=== PATIENT | female | born 2000 | race Caucasian/White ===

== ENCOUNTER → 2020-07-17 12:30 | Observation (INO) | END | disposition home or self-care (01) | LOC: 1NENULAB | PROVIDERS: ADMIT Obstetrics & Gynecology; ATTEND Obstetrics & Gynecology ==

== ENCOUNTER → 2020-10-07 22:41 | Observation (INO) ==
[2020-10-07 19:18] LABS: Basophils % 0.3 %; Eosinophils % 0.3 %; Hematocrit 33.2 % (35.3-44.9); Hemoglobin 11.2 g/dL (11.5-15.4); Immature Granulocytes % 1.5 % (0-4); Lymphocytes % 21.9 %; Mean Corpuscular HGB Conc 33.7 g/dL (31.6-35.5); Mean Platelet Volume 9.6 fL (9.4-12.4); Monocytes # 1.1 K/mcL (0.0-1.3); Monocytes % 7.8 %; Neutrophils # 9.3 K/mcL (1.6-8.9); Platelet Count 311 K/mcL (140-400); Red Blood Count 3.73 M/mcL (3.82-4.97); Red Cell Distribution Width 12.7 % (11.5-14.5); Segmented Neutrophils % 68.2 %; White Blood Count 13.7 K/mcL (4.3-11.1)
[2020-10-07 19:25] LABS: INR 0.9; Prothrombin Time 10.4 Seconds (9.4-12.1)
[2020-10-07 19:27] LABS: Activated Partial Thrombo Time 24.8 Seconds (26.0-36.0)
== END | disposition home or self-care (01) ==
LOC: 1NENULAB
PROVIDERS: ADMIT Advanced Practice Midwife; ATTEND Advanced Practice Midwife

== ENCOUNTER 2020-11-08 | Inpatient (IN) ==
[2020-11-08] MEDS ORDERED: *HR* Nalbuphine 10 MG/ML AMPUL IV PRN (00:14)
[2020-11-08] MEDS ORDERED: Metoclopramide 10 MG/2 ML VIAL IVP PRN (00:14)
[2020-11-08] MEDS ORDERED: Lidocaine 1% 20 ML MDV INFILT PRN (00:14)
[2020-11-08] MEDS ORDERED: Famotidine 20 MG/2 ML VIAL IVP PRN (00:14)
[2020-11-08] MEDS ORDERED: miSOPROStoL 25 MCG TABLET PO PRN (00:14)
[2020-11-08] MEDS ORDERED: Naloxone 0.4 MG/ML INJ IVP PRN (00:14)
[2020-11-08] MEDS ORDERED: Ondansetron 4 MG/2 ML VIAL IVP PRN (00:14)
[2020-11-08] MEDS ORDERED: *HR* FentaNYL (PF) 100 MCG/2 ML VIAL IVP PRN (00:14)
[2020-11-08] MEDS ORDERED: Azithromycin 500 MG in 0.9 % Sodium Chloride 250 ML IVPB PRN (00:14)
[2020-11-08] MEDS ORDERED: Ringers Solution, Lactated 1,000 ML IVC SCH (00:15)
[2020-11-08 00:33] LABS: Basophils % 0.2 %; Eosinophils # 0.2 K/mcL (0.0-0.6); Hematocrit 36.5 % (35.3-44.9); Hemoglobin 12.4 g/dL (11.5-15.4); Immature Granulocytes % 0.4 % (0-4); Lymphocytes # 3.3 K/mcL (0.6-4.6); Lymphocytes % 22.8 %; Mean Corpuscular Hemoglobin 30.2 pg (28.0-33.3); Monocytes # 0.9 K/mcL (0.0-1.3); Monocytes % 6.3 %; Neutrophils # 10.1 K/mcL (1.6-8.9); Platelet Count 262 K/mcL (140-400); Red Cell Distribution Width 12.8 % (11.5-14.5); Segmented Neutrophils % 69.3 %; White Blood Count 14.5 K/mcL (4.3-11.1)
[2020-11-08 00:42] LABS: Amphetamine Screen,Urine Negative ng/mL (Cutoff=1000); Barbiturate Screen,Urine Negative ng/mL (Cutoff=200); Benzodiazepines Screen,Urine Negative ng/mL (Cutoff=200); Cannabinoid Screen,Urine Negative ng/mL (Cutoff = 50); Cocaine Screen,Urine Negative ng/mL (Cutoff= 300); Opiate Screen,Urine Negative ng/mL (Cutoff=300); Phencyclidine Screen,Urine Negative ng/mL (Cutoff=25)
[2020-11-08] MEDS ORDERED: Oxytocin 20 units/ LR 1000 mL 20 UNIT/1,000 ML BAG IVC ONE (01:08)
[2020-11-08] MEDS ORDERED: EPHEDrine 50 MG/ML VIAL IVP PRN (01:34)
[2020-11-08] MEDS ORDERED: Ropivacaine/PF 0.2% 20 ML VIAL EP ONE (01:34)
[2020-11-08] MEDS ORDERED: *HR* FentaNYL (PF) 100 MCG/2 ML VIAL EP ONE (01:34)
[2020-11-08] MEDS ORDERED: Ropivacaine/PF 0.2% 20 ML VIAL ONE ×2 (01:37→15:51)
[2020-11-08] MEDS ORDERED: *HR* FentaNYL (PF) 100 MCG/2 ML VIAL ONE (01:37)
[2020-11-08] MEDS: Epidural Premix (fent/bupiv) 110 ML EP SCH ×2 (15:10→21:15)
[2020-11-08] MEDS ORDERED: *HR* FentaNYL (PF) 250 MCG/5 ML VIAL ONE ×2 (15:51→19:16)
[2020-11-09] MEDS ORDERED: *HR* FentaNYL (PF) 100 MCG/2 ML VIAL ONE (00:41)
[2020-11-09] MEDS ORDERED: Oxytocin 20 units/ LR 1000 mL 20 UNIT/1,000 ML BAG IVC SCH (03:18)
[2020-11-09] MEDS ORDERED: Benzocaine/Menthol 56 GM AEROSOL SPRAY TP PRN (03:18)
[2020-11-09] MEDS ORDERED: Measles/Mumps/Rubella Vacc 0.5 ML VIAL SQ PRN (03:18)
[2020-11-09] MEDS: Ibuprofen 600 MG TABLET PO PRN ×3 (03:36→16:55)
[2020-11-09] MEDS: Prenatal Vit/FA 1 EACH TABLET PO SCH (08:46)
[2020-11-09] MEDS: Acetaminophen 325 MG TABLET PO PRN ×3 (08:47→21:45)
[2020-11-09] MEDS ORDERED: NON-FORMULARY MEDICATION 1 EACH EACH (Ferrous Sulfate [Iron] 325 MG Tablet) PO SCH (09:00)
[2020-11-09] MEDS: predniSONE 20 MG TABLET PO SCH (09:25)
[2020-11-10] MEDS: Acetaminophen 325 MG TABLET PO PRN (07:45)
[2020-11-10] MEDS: predniSONE 20 MG TABLET PO SCH (07:46)
[2020-11-10] MEDS: Ibuprofen 600 MG TABLET PO PRN (07:46)
[2020-11-10] MEDS: Prenatal Vit/FA 1 EACH TABLET PO SCH (07:46)
[2020-11-10 07:53] VITALS: BP 138/78
== END 2020-11-10 10:11 | disposition home or self-care (01) | DRG 560 ==
LOC: 1NENULAB 00:01 → 1NENUOBS 11-09 05:36
PROVIDERS: ADMIT Obstetrics & Gynecology; ATTEND Obstetrics & Gynecology